=== PATIENT | female | born 1960 | race African-American/Black ===

== ENCOUNTER 2022-04-05 17:44 | Emergency (ER) | payer OTHER ==
[~2022-04-05] VITALS: Ht 172.7 cm; Wt 96.0 kg
[2022-04-05 18:01] VITALS: BP 130/108
[2022-04-05 18:42] LABS: CLARITY URINE CLOUDY (CLEAR); COLOR URINE DARK YELLOW (YELLOW); KETONES URINE 1+ (NEGATIVE); LEUKOCYTE ESTERASE URINE 3+ (NEGATIVE); NITRITE URINE NEGATIVE (NEGATIVE); OCCULT BLOOD URINE NEGATIVE (NEGATIVE); PROTEIN URINE 2+ (NEGATIVE); SPECIFIC GRAVITY URINE 1.025 (1.005-1.030)
[2022-04-05] MEDS ORDERED: GABAPENTIN 300MG CAPSULE PO ONE (21:30)
[2022-04-05] MEDS ORDERED: AZITHROMYCIN 500 MG TABLET PO ONE (22:00)
[2022-04-05] MEDS ORDERED: CEFTRIAXONE SODIUM 500 MG/VIAL IM ONE (22:00)
[2022-04-05] MEDS ORDERED: METRONIDAZOLE 500MG TABLET PO ONE (22:00)
[2022-04-05] MEDS ORDERED: METR-167 MT (22:12)
[2022-04-12 04:07] LABS: NEISSERIA GONORRHOEAE NAA Negative (Negative)
== END 2022-04-05 22:30 | disposition home or self-care (01) ==
LOC: ER 17:44
DX: N89.8 Other specified noninflammatory disorders of vagina (principal); J44.1 Chronic obstructive pulmonary disease with (acute) exacerbation; I10 Essential (primary) hypertension
CPT/HCPCS: 81003; 87086; 87210; 87491; 87591; 96372; 99284; J0696

== ENCOUNTER 2022-05-30 13:48 | Emergency (ER) | payer MEDICAID, OTHER ==
[~2022-05-30] VITALS: Ht 172.7 cm; Wt 91.0 kg
[~2022-05-30 13:48] MED LIST: METR-167 MT
[2022-05-30 14:00] VITALS: BP 112/84
[2022-05-30] MEDS ORDERED: CEFTRIAXONE SODIUM 500 MG/VIAL IM ONE (16:45)
[2022-05-30 17:42] LABS: CLARITY URINE CLEAR (CLEAR); COLOR URINE YELLOW (YELLOW); KETONES URINE TRACE (NEGATIVE); LEUKOCYTE ESTERASE URINE TRACE (NEGATIVE); NITRITE URINE NEGATIVE (NEGATIVE); OCCULT BLOOD URINE NEGATIVE (NEGATIVE); PROTEIN URINE TRACE (NEGATIVE)
[2022-05-30] MEDS ORDERED: IBUP-2028 MT (19:11)
[2022-05-30] MEDS ORDERED: NITR-87 MT (19:11)
[2022-05-30] MEDS ORDERED: DOXY100C5 MT (19:11)
[2022-06-02 04:07] LABS: NEISSERIA GONORRHOEAE NAA Negative (Negative)
== END 2022-05-30 19:35 | disposition home or self-care (01) ==
LOC: ER 13:48
DX: M25.562 Pain in left knee (principal); N89.8 Other specified noninflammatory disorders of vagina; J44.9 Chronic obstructive pulmonary disease, unspecified; I10 Essential (primary) hypertension
CPT/HCPCS: 73560; 81003; 87210; 87491; 87591; 96372; 99284; J0696; Z7610

== ENCOUNTER 2022-07-02 21:10 | Emergency (ER) | payer MEDICAID, OTHER ==
[~2022-07-02] VITALS: Ht 172.7 cm; Wt 105.0 kg
[~2022-07-02 21:10] MED LIST changes: +DOXY100C5 MT; +IBUP-2028 MT; +NITR-87 MT
[2022-07-02] MEDS ORDERED: NITR100C PO (23:55)
[2022-07-03 00:44] VITALS: BP 122/70
== END 2022-07-03 00:44 | disposition home or self-care (01) ==
LOC: ER 21:10
DX: R30.0 Dysuria (principal); J44.9 Chronic obstructive pulmonary disease, unspecified; I10 Essential (primary) hypertension
CPT/HCPCS: 99281